=== PATIENT | male | born 1975 | race Caucasian/White ===

== ENCOUNTER 2017-01-31 00:45 | Emergency (ER) | payer MEDICAID ==
[~2017-01-31 00:45] MED LIST: CIPRO750 MG PO; FLAGYL500 MG PO; LAC PO
[2017-01-31 02:28] LABS: microscopic required? YES; urine erythrocyte 1+ (NEGATIVE)
[2017-01-31 02:39] LABS: CALCIUM 8.3 mg/dL (8.5-10.1); CARBON DIOXIDE 28.2 mmol/L (21-32); CHLORIDE SERUM 105 mmol/L (98-107); GFR1 > 60 mL/min; GLUCOSE SERUM 107 mg/dL (74-106); POTASSIUM SERUM 3.7 mmol/L (3.5-5.1); SODIUM SERUM 142 mmol/L (136-145)
[2017-01-31 02:43] LABS: ALBUMIN 3.6 g/dL (3.4-5.0); ALKALINE PHOSPHATASE 78 U/L (46-116); ALT/SGPT 35 U/L (16-63); AST/SGOT 19 U/L (15-37); BILIRUBIN TOTAL 1.01 mg/dL (0.20-1.00); LIPASE 125 IU/L (73-393); TOTAL PROTEIN, SERUM 7.1 g/dL (6.4-8.2); URIC ACID 5.4 mg/dL (3.5-7.2)
[2017-01-31 02:45] LABS: BASOPHIL % 0.5 % (0-2); PLATELET COUNT 217 x10^3mcL (130-400); RED CELL DISTRIBUTION WIDTH 12.6 % (11.5-14.5)
[2017-01-31 06:29] VITALS: BP 106/65
== END 2017-01-31 06:29 | disposition home or self-care (01) ==
LOC: ED 00:45
PROVIDERS: Emergency Medicine
DX: K57.92 Diverticulitis of intestine, part unspecified, without perforation or abscess without bleeding (principal)
CPT/HCPCS: 83880; J1885; J3490

== ENCOUNTER 2019-01-18 20:31 | Emergency (ER) | payer MEDICAID ==
[~2019-01-18] VITALS: Ht 160 cm; Wt 94.3 kg
[2019-01-18 21:15] VITALS: Ht 160 cm; Wt 94.3 kg
[2019-01-18 21:40] LABS: BASOPHIL % 0.1 % (0-2); PLATELET COUNT 242 x10^3mcL (130-400); RED CELL DISTRIBUTION WIDTH 13.4 % (11.5-14.5)
[2019-01-18 21:44] LABS: CALCIUM 8.3 mg/dL (8.5-10.1); CARBON DIOXIDE 29.3 mmol/L (21-32); CHLORIDE SERUM 103 mmol/L (98-107); CREATININE SERUM 0.9 mg/dL (0.7-1.3); GFR1 > 60 mL/min; GLUCOSE SERUM 103 mg/dL (74-106); POTASSIUM SERUM 3.4 mmol/L (3.5-5.1); SODIUM SERUM 139 mmol/L (136-145)
[2019-01-18 21:48] LABS: ALBUMIN 3.8 g/dL (3.4-5.0); ALKALINE PHOSPHATASE 93 U/L (46-116); ALT/SGPT 33 U/L (16-63); AST/SGOT 19 U/L (15-37); BILIRUBIN TOTAL 0.6 mg/dL (0.20-1.00); LIPASE 113 IU/L (73-393); TOTAL PROTEIN, SERUM 7.9 g/dL (6.4-8.2)
[2019-01-19 00:05] VITALS: BP 121/71
== END 2019-01-19 00:05 | disposition home or self-care (01) ==
LOC: ED 20:31
DX: K57.92 Diverticulitis of intestine, part unspecified, without perforation or abscess without bleeding (principal); E86.0 Dehydration
CPT/HCPCS: J1885